=== PATIENT | male | born 1930 | race Hispanic/Latino ===

== ENCOUNTER 2016-10-31 01:35 | Inpatient (IN) | payer MEDICARE ==
[2016-10-31 03:03] LABS: Basophils % (Auto) 0.7 % (0.0-1.8); Eosinophils % (Auto) 3.5 % (0.0-4.3); Hematocrit 41.6 % (35.5-45.6); Mean Corpuscular HGB Conc 34 % (32-34); Mean Corpuscular Hemoglobin 33 pg (28-32); Mean Corpuscular Volume 99 fl (84-94); Platelet Count 200 K/mm3 (140-440); Red Blood Count 4.19 M/mm3 (3.65-5.03); Red Cell Distribution Width 13.9 % (13.2-15.2); White Blood Count 7.1 K/mm3 (4.5-11.0)
[2016-10-31 03:11] LABS: BUN/Creatinine Ratio 16.36; Blood Urea Nitrogen 18 mg/dL (9-20); Calcium 8.9 mg/dL (8.4-10.2); Carbon Dioxide 28 mmol/L (22-30); Chloride 100.1 mmol/L (98-107); Glucose 124 mg/dL (75-100); Potassium 4.6 mmol/L (3.6-5.0); Sodium 140 mmol/L (137-145)
[2016-10-31 03:14] LABS: Bacteria,Urine 4+ /HPF (Negative); Bilirubin,Urine NEG (Negative); Blood,Urine LG (Negative); Ketones,Urine NEG (Negative); Leukocyte Esterase,Urine NEG (Negative); Mucus,Urine FEW /HPF; Nitrite,Urine NEG (Negative); Urobilinogen,Urine < 2.0 mg/dL (<2.0)
[2016-10-31 03:22] LABS: Anion Gap 17 mmol/L
[2016-10-31] MEDS ORDERED: NACL 0.9% 1000 ML 2,000 ML IV ONE (08:42)
[2016-10-31] MEDS ORDERED: CARDIZEM IV ONE ×2 (08:59→09:42)
--- NOTE | 2016-10-31 09:01 | Emergency Department Report ---
HPI - General Chief Complaint: Dyspnea/Respdistress Time Seen by Provider: 10/31/16 07:25 - HPI HPI: The patient is an 86-year-old male with a significant history of bladder mass, and cystoscopy yesterday evening, who presents for evaluation of hematuria and shortness of breath. The patient states that his hematuria is elicited with urination, and has been mild in severity, and constant since his cystoscopy greater than 12 hours prior to my evaluation. He also admits to moderate in severity shortness of breath, exacerbated with ablation or physical activity, and improved at risk, for the past 24 hours. The patient denies fever, cough, syncope, hemoptysis, hematemesis, blood in the stool, easy bruising or bleeding , unilateral leg swelling, recent immobilization, history of DVT or PE. ED Past Medical Hx - Past Medical History Previous Medical History?: Yes Hx Kidney Stones: Yes Additional medical history: Aortic Aneurism 02/10 - Surgical History Additional Surgical History: Hernia repair - Social History Smoking Status: Former Smoker Substance Use Type: None - Medications Home Medications: Home Medications Medication Instructions Recorded Confirmed Last Taken Type Aspirin 81 mg PO QDAY 10/31/16 10/31/16 Unknown History Cefuroxime 250 mg PO 10/31/16 Unknown History Eye Vitamin-Minerals Tablet 1 tab PO BID 10/31/16 10/31/16 Unknown History Flomax 0.8 mg PO QDAY 10/31/16 10/31/16 Unknown History Lipitor 40 mg PO QDAY 10/31/16 10/31/16 Unknown History Tylenol Pm Ex-Strength Caplet 500 mg PO PRN PRN 10/31/16 10/31/16 Unknown History Zantac 300 MG TAB 300 mg PO QDAY 10/31/16 10/31/16 Unknown History traMADol 50 mg PO PRN PRN 10/31/16 10/31/16 Unknown History ED Review of Systems ROS: Stated complaint: BLOOD IN URIN Other details as noted in HPI Constitutional: denies: fever ENT: denies: throat or neck pain Respiratory: reports shortness of breath Cardiovascular: denies: chest pain Endocrine: denies unexplained weight loss or gain Gastrointestinal: denies: abdominal pain, nausea Genitourinary: Reports hematuria denies: dysuria Musculoskeletal: denies: leg swelling Skin: denies: rash Neurological: denies: headache Hematological/Lymphatic: denies: easy bleeding or easy bruising Psych: denies sadness or hopelessness Physical Exam - Physical Exam Vital Signs: Vital Signs 10/31/16 10/31/16 02:17 08:25 Temperature 97.7 F Pulse Rate 130 H Respiratory 20 18 Rate Blood Pressure 124/90 O2 Sat by Pulse 99 Oximetry Physical Exam: General: well-nourished, well-developed, no acute distress Head: Normocephalic, atraumatic Eyes: normal sclera ENT: Mucous membranes are pale and dry Neck: trachea midline, neck supple, No neck stiffness, no cervical adenopathy Respiratory: Breath sounds equal bilaterally, no wheezing, rales, or rhonchi Cardio: tachycardic, S1 and S2 present, no murmurs, rubs, gallops, capillary refill is delayed Abdomen: Normoactive bowel sounds, soft abdomen, no rigidity, no guarding or rebound tenderness Chest WALL/Back: No tenderness to palpation of the chest wall, no CVA tenderness with percussion Musc: No pitting edema Skin: No rash Neuro: no facial drooping, normal speech Psych: Normal affect ED Course Vital Signs 10/31/16 10/31/16 02:17 08:25 Temperature 97.7 F Pulse Rate 130 H Respiratory 20 18 Rate Blood Pressure 124/90 O2 Sat by Pulse 99 Oximetry ED Medical Decision Making - Lab Data Result diagrams: 10/31/16 02:31 10/31/16 02:31 - Medical Decision Making The patient was seen and examined by myself. The patient is placed on a cardiac surgeon and continuous pulse ox. On initial evaluation, the patient was found to be in no distress, with significantly elevated heart rate ranging from 130s to 140s. EKG exhibits irregularly irregular narrow complex tachycardic rhythm with no P waves, & significantly elevated heart rate, consistent with A. fib with RVR. Evaluation orders were placed. The patient is given IV Cardizem for treatment of arrhythmia and 1 L normal saline fluid bolus for treatment of dehydration. Multiple bedside reassessments are performed. Lab results reveal elevated BNP of 1000, otherwise labs are grossly not revealing. As the patient's found to have new onset atrial fibrillation, he will be admitted for continued treatment and evaluation by cardiology. The patient's urologist Dr. Valenzuela was contacted. He was informed of the patient's admission and agreed to consultation. He said that he will consider performing transurethral resection during patient's hospital stay. The patient's physician Dr. Manuel was contacted. He agreed to admit the patient. The ED admit order was placed. The patient was admitted in guarded condition. Critical care attestation.: If time is entered above; I have spent that time in minutes in the direct care of this critically ill patient, excluding procedure time. ED Disposition Clinical Impression: Atrial fibrillation with rapid ventricular response, Hematuria, Dehydration Disposition: OP ADMITTED IP TO THIS HOSP Is pt being admited?: Yes Does the pt Need Aspirin: Yes Condition: Serious Time of Disposition: 08:55
--- NOTE | 2016-10-31 09:02 | Admit Criteria Form ---
Admission Criteria Documentation: ATRIAL FIBRILLATION Clinical Indications for Admission to Inpatient Care (Place 'X' for any and all applicable criteria): Admission indicated for ANY ONE of the following(1)(2)(3)(4)(5) : [ ]I. Myocardial ischemia [ ]II. Dyspnea or hypoxemia [ ]III. Hemodynamic instability [ ]IV. Heart failure (e.g., pulmonary edema) (7) [X ]V. New-onset (less than 48 hours) atrial fibrillation with high risk for causing complications secondary to comorbidities (eg, symptomatic heart failure ) [ ]. Altered mental status [ ]VII. Syncope [ ]VIII. Patient has implantable cardioverter defibrillator that has fired more than once within past 24hr or needs immediate adjustment of settings that cannot be done other than in inpatient setting. (8) [ ]IX. Suspected accessory pathway (e.g., Ebkhx-Irjeiiviu-Bxnvn syndrome) on ECG [ ]X. Recent systemic thromboembolism (eg, stroke) [ ]XI. Medication toxicity (e.g., digitalis) causing arrhythmia(9) [ ]XII. Underlying medical condition that necessitates inpatient care (e.g., thyrotoxicosis, pneumonia) (10) [ ]XIII. Continuous ECG monitoring is required for condition causing arrhythmia (e.g., severe hyperkalemia, hypokalemia, acid-base disturbance).(11)(12)(13) [ ]XIV. Initiation of antiarrhythmic drug therapy is needed in patient at high risk of adverse effects as indicated by ANY ONE of the following: [ ]a) Significant structural heart disease (e.g., reduced ejection fraction, congenital heart disease, valvular heart disease) [ ]b) Prolonged QT interval [ ]c) Underlying sinus node or atrioventricular conduction disturbances [ ]d) Need for treatment with antiarrhythmic drugs that have significant proarrhythmic potential (e.g., dofetilide, sotalol, procainamide) [ ]e) Patient whose sinus rhythm has never been observed on ECG [ ]XV. Intolerable symptoms despite optimal outpatient treatment [ ]XVI. Elective or urgent cardioversion that cannot be performed on outpatient basis or during observation care. [A] (Use also Atrial Fibrillation: Observation Care ) as appropriate.(14) [ ]XVII.Contraindications and/or Inappropriate clinical situations for Observational Care in patients with Atrial Fibrillation, when ANY ONE of the following is required: [ ]a) Patient with High risk of cardiac embolism (e.g, patients with previous cardiac embolism, LVEF < 40%, age >75 and patients with prosthetic valve) 18 [ ]b) Patient with Moderate risk including DM patient, CAD and patient aged 65-75 18 [ ]c) Patient with any change in cardiac biomarker especially troponin should be managed as high risk in an inpatient setting 19 [ ]d) Physician judgement irrespective of ECG and other diagnostic findings 20 [ X]XVIII.General contraindications and/or Inappropriate clinical situations for Observational Care in patients with Atrial Fibrillation, when ANY ONE of the following is required: [ X]a) Prediction of prolongation of LOS based on ANY ONE of the following may be considered as a contraindication for observational care 2, 3, 4, 5, 6, 7, 8, 9, 10, 11 [X ]i) Age > 65 yrs. [ ]ii) Patient arriving by ambulance [ ]iii) Patient with high acuity [ ]iv) Patient requiring vital sign monitoring [ ]v) Patient on IV medication [ ]b) Systolic blood pressures 180mmHg 3,12 [ ]c) Patient with altered mental status including delirium and other alteration of consciousness3 [ ]d) Patient whose discharge disposition will be to a [facility] home or rehabilitation home should not be managed in Emergency Department Observation Unit. CMS rule requires 3 days hospital stay before such placement.3,13 [ ]e) Patient with failure to thrive due to broad array of etiologies 3,16,17 [ ]f) Inability to ambulate 3,14 Extended stay beyond goal length of stay may be needed for (1)(25)(26): [ ]a) Unstable comorbidities [ ]b) Persistently uncontrolled atrial fibrillation or other arrhythmias [ ]c) Acute thromboembolic event (e.g., stroke, limb ischemia) [ ]d) Need for inpatient attainment of full anticoagulation The original ethology content created by [employer] has been revised. The portions of the content which have been revised are identified through the use of italic text or in bold, and [facility] has neither reviewed nor approved the modified material. All other unmodified content is copyright [facility]. Please see references footnoted in the original [facility] edition 2016 Admission Criteria Met: Yes
[2016-10-31] MEDS ORDERED: TYLENOL PO PRN (09:30)
[2016-10-31] MEDS ORDERED: ZOFRAN IV PRN (09:30)
[2016-10-31] MEDS ORDERED: MILK OF MAGNESIA PO PRN (09:30)
[2016-10-31 09:33] LABS: INR 0.94 (0.87-1.13); Partial Thromboplastin Time 25.8 Sec. (24.2-36.6)
[2016-10-31] MEDS ORDERED: LOPRESSOR PO ONE (09:34)
[2016-10-31] MEDS ORDERED: CARDIZEM PO ONE (09:35)
[2016-10-31] MEDS ORDERED: LOVENOX SUB-Q SCH ×2 (10:00)
[2016-10-31] MEDS ORDERED: DULCOLAX PR PRN (10:00)
--- NOTE | 2016-10-31 12:06 | Consultation ---
History of Present Illness Consult date: 10/31/16 Requesting physician: GARY GOMEZ Consult reason: atrial fibrillation History of present illness: The patient underwent cystoscopy as part of evaluation of a bladder mass yesterday. Last evening, he started experiencing hematuria which became severe according to him. As such, he presented to the emergency department. Upon presentation, he was noted to be in rapid atrial fibrillation. He is asymptomatic for this. His electrolytes and thyroid profile are normal. In January 2016, he had a negative PET myocardial perfusions scan. Echocardiogram revealed an ejection fraction of 55% at the same time. In addition, there was documentation of a 3.3 cm fusiform abdominal aortic aneurysm. Past History Past Medical History: hyperlipidemia, other (abdominal aortic aneurysm) Past Surgical History: No surgical history Social history: . denies: smoking, alcohol abuse Family history: denies: CAD Medications and Allergies Allergies Allergy/AdvReac Type Severity Reaction Status Date / Time No Known Allergies Allergy Unverified 10/31/16 02:16 Home Medications Medication Instructions Recorded Confirmed Last Taken Type Aspirin 81 mg PO QDAY 10/31/16 10/31/16 Unknown History Cefuroxime 250 mg PO BID 10/31/16 10/31/16 Unknown History Eye Vitamin-Minerals Tablet 1 tab PO BID 10/31/16 10/31/16 Unknown History Flomax 0.8 mg PO QDAY 10/31/16 10/31/16 Unknown History Lipitor 40 mg PO QDAY 10/31/16 10/31/16 Unknown History Tylenol Pm Ex-Strength Caplet 500 mg PO PRN PRN 10/31/16 10/31/16 Unknown History Zantac 300 MG TAB 300 mg PO QDAY 10/31/16 10/31/16 Unknown History traMADol 50 mg PO PRN PRN 10/31/16 10/31/16 Unknown History Active Meds: Active Medications Acetaminophen (Tylenol) 650 mg PO Q4H PRN PRN Reason: Pain MILD(1-3)/Fever >100.5/SMITH Bisacodyl (Dulcolax) 10 mg [place] QDAY PRN PRN Reason: Constipation unrelieved by MOM Enoxaparin Sodium (Lovenox) 70 mg SUB-Q Q12HR MATTHEW Last Admin: 10/31/16 11:37 Dose: Not Given Magnesium Hydroxide (Milk Of Magnesia) 30 ml PO Q4H PRN PRN Reason: Constipation Ondansetron HCl (Zofran) 4 mg IV Q8H PRN PRN Reason: Nausea And Vomiting Review of Systems Constitutional: no fever, no chills Ears, nose, mouth and throat: no ear pain, no ear discharge, no sore throat Cardiovascular: no chest pain, no palpitations, no lightheadedness, no shortness of breath Respiratory: no cough, no hemoptysis, no shortness of breath, no dyspnea on exertion Gastrointestinal: no abdominal pain, no nausea, no vomiting, no diarrhea, no constipation Genitourinary Male: hematuria, no dysuria Rectal: no pain, no bleeding Musculoskeletal: no neck stiffness, no muscle weakness, no myalgias Integumentary: no rash, no pruritis Neurological: no weakness, no parathesias, no numbness, no headaches Endocrine: no cold intolerance, no heat intolerance Hematologic/Lymphatic: no easy bruising, no easy bleeding, no lymphedema Allergic/Immunologic: no urticaria, no wheezing Physical Examination Vital Signs Last Vital Signs Temp 97.7 F 10/31/16 02:17 Pulse 126 H 10/31/16 11:46 Resp 17 10/31/16 08:56 BP 145/92 10/31/16 10:36 Pulse Ox 97 10/31/16 08:56 General appearance: no acute distress HEENT: Positive: EOMI, Normocephaly, Mucus Membranes Moist Neck: Positive: neck supple, trachea midline Cardiac: Positive: irregularly irregular, S1/S2 Lungs: Positive: clear to auscultation Neuro: Positive: Grossly Intact Abdomen: Positive: Soft, Active Bowel Sounds. Negative: Tender Skin: Positive: Clear. Negative: Rash Musculoskeletal: Normal Range of Motion Extremities: Present: normal. Absent: edema Results 10/31/16 02:31 10/31/16 02:31 - Imaging and Cardiology EKG: image reviewed EKG interpretations - Telemetry EKG Rhythm: Atrial Fibrillation - EKG Supraventricular dysrhythmia: atrial fibrillation (with RVR) Assessment and Plan I will initiate IV Cardizem drip and oral metoprolol for rate control and hopefully, he will convert to sinus rhythm. I will not initiate anticoagulation at this time in the setting of hematuria. - Patient Problems (1) Atrial fibrillation with rapid ventricular response Current Visit: Yes Status: Acute (2) Hematuria Current Visit: Yes Status: Acute (3) Bladder mass Current Visit: Yes Status: Acute
--- NOTE | 2016-10-31 12:41 | Consultation ---
History of Present Illness - Reason for Consult Consult date: 10/31/16 - History of Present Illness pt with bladder tumor. ER with hematuria int and end void but stream clear. Past History Past Medical History: hyperlipidemia, other (abdominal aortic aneurysm) Past Surgical History: No surgical history Social history: . denies: smoking, alcohol abuse Family history: denies: CAD Medications and Allergies Allergies Allergy/AdvReac Type Severity Reaction Status Date / Time No Known Allergies Allergy Unverified 10/31/16 02:16 Home Medications Medication Instructions Recorded Confirmed Last Taken Type Aspirin 81 mg PO QDAY 10/31/16 10/31/16 Unknown History Cefuroxime 250 mg PO BID 10/31/16 10/31/16 Unknown History Eye Vitamin-Minerals Tablet 1 tab PO BID 10/31/16 10/31/16 Unknown History Flomax 0.8 mg PO QDAY 10/31/16 10/31/16 Unknown History Lipitor 40 mg PO QDAY 10/31/16 10/31/16 Unknown History Tylenol Pm Ex-Strength Caplet 500 mg PO PRN PRN 10/31/16 10/31/16 Unknown History Zantac 300 MG TAB 300 mg PO QDAY 10/31/16 10/31/16 Unknown History traMADol 50 mg PO PRN PRN 10/31/16 10/31/16 Unknown History Active Meds: Active Medications Acetaminophen (Tylenol) 650 mg PO Q4H PRN PRN Reason: Pain MILD(1-3)/Fever >100.5/SMITH Bisacodyl (Dulcolax) 10 mg [place] QDAY PRN PRN Reason: Constipation unrelieved by MOM Diltiazem HCl (Cardizem/D5w 100mg/100ml) 100 mls @ 5 mls/hr IV TITR MATTHEW; 5 MG/ HR PRN Reason: Protocol Magnesium Hydroxide (Milk Of Magnesia) 30 ml PO Q4H PRN PRN Reason: Constipation Metoprolol Tartrate (Lopressor) 50 mg PO Q6HR MATTHEW Ondansetron HCl (Zofran) 4 mg IV Q8H PRN PRN Reason: Nausea And Vomiting Review of Systems All systems: negative Genitourinary Male: hematuria Exam - Constitutional Vitals: Temp Pulse Resp BP Pulse Ox 97.7 F 126 H 17 145/92 97 10/31/16 02:17 10/31/16 11:46 10/31/16 08:56 10/31/16 10:36 10/31/16 08:56 General appearance: Present: no acute distress - EENT Eyes: Present: EOM intact ENT: hearing intact, clear oral mucosa - Neck Neck: Present: normal ROM - Extremities Extremities: no ischemia, No edema, Full ROM - Abdominal General gastrointestinal: Present: soft, non-tender Male genitourinary: Present: normal - Rectal Rectal Exam: deferred - Psychiatric Psychiatric: appropriate mood/affect Results - Labs CBC & Chem 7: 10/31/16 02:31 10/31/16 02:31 Assessment and Plan BLADDER TUMOR HEMATURIA AFIB UTI - cx, abx - Cards attempting to convert - will need future TURBT - UA 7 rbc
[2016-10-31] MEDS ORDERED: CARDIZEM/D5W 100MG/100ML 100 ML IV SCH ×2 (13:00→15:00)
[2016-10-31] MEDS: D5/0.45NS 1,000 ML IV SCH (15:19)
[2016-10-31] MEDS: LOPRESSOR PO SCH (16:47)
[2016-11-01] MEDS: LOPRESSOR PO SCH ×3 (00:27→12:10)
[2016-11-01] MEDS: D5/0.45NS 1,000 ML IV SCH ×2 (00:28→06:37)
--- NOTE | 2016-11-01 07:42 | Progress Note ---
Assessment and Plan BLADDER TUMOR HEMATURIA AFIB UTI - cx, abx - Cards attempting to convert - will need future TURBT - UA 7 rbc in ER 11/01/16 - IVF started yest afternoon - some dk urine likely old blood - will eval card status - will consider TURBT inpt when stable vs outpt -ext disc w pt fam about prognosis - 20 min Subjective Date of service: 11/01/16 Principal diagnosis: no void compl or pain, improved color Objective - Constitutional Vitals: Vital Signs - 12hr 10/31/16 11/01/16 11/01/16 21:14 00:50 05:41 Temperature 98.7 F 98.2 F 97.6 F Pulse Rate Pulse Rate [ 85 69 68 Right Radial] Respiratory 20 18 20 Rate Blood Pressure Blood Pressure 109/54 104/52 125/75 [Right Arm] O2 Sat by Pulse 97 99 96 Oximetry 11/01/16 06:31 Temperature Pulse Rate 72 Pulse Rate [ Right Radial] Respiratory Rate Blood Pressure 125/75 Blood Pressure [Right Arm] O2 Sat by Pulse Oximetry General appearance: Present: no acute distress - Labs CBC & Chem 7: 11/01/16 06:48 11/01/16 06:48
[2016-11-01 07:46] LABS: Basophils % (Auto) 0.8 % (0.0-1.8); Eosinophils % (Auto) 4.6 % (0.0-4.3); Hematocrit 37.4 % (35.5-45.6); Hemoglobin 12.6 gm/dl (11.8-15.2); Mean Corpuscular HGB Conc 34 % (32-34); Mean Corpuscular Hemoglobin 34 pg (28-32); Mean Corpuscular Volume 100 fl (84-94); Platelet Count 181 K/mm3 (140-440); Red Blood Count 3.73 M/mm3 (3.65-5.03); White Blood Count 4.9 K/mm3 (4.5-11.0)
--- NOTE | 2016-11-01 07:47 | History and Physical Report ---
History of Present Illness Date of examination: 11/01/16 Date of admission: 10/31/16 09:15 Chief complaint: Afib with RVR, Hematurai History of present illness: Pt is an 86 y/o male who has a history of urinary bladder tumor and had a cystostomy for further evaluation of same. Had hematuria thereafter for which he presented to the emergency department. Pt was found to have new onset Afib with RVR. Pt has no chest pain, Shortness of breath, PND or palpitaion. TSH was normal. However has very elevated BNP. Cardiology consult was obtained Past History Past Medical History: hyperlipidemia, other (abdominal aortic aneurysm) Past Surgical History: No surgical history Social history: . denies: smoking, alcohol abuse Family history: denies: CAD Medications and Allergies Allergies Allergy/AdvReac Type Severity Reaction Status Date / Time No Known Allergies Allergy Unverified 10/31/16 02:16 Home Medications Medication Instructions Recorded Confirmed Last Taken Type Aspirin 81 mg PO QDAY 10/31/16 10/31/16 Unknown History Cefuroxime 250 mg PO BID 10/31/16 10/31/16 Unknown History Eye Vitamin-Minerals Tablet 1 tab PO BID 10/31/16 10/31/16 Unknown History Flomax 0.8 mg PO QDAY 10/31/16 10/31/16 Unknown History Lipitor 40 mg PO QDAY 10/31/16 10/31/16 Unknown History Tylenol Pm Ex-Strength Caplet 500 mg PO PRN PRN 10/31/16 10/31/16 Unknown History Zantac 300 MG TAB 300 mg PO QDAY 10/31/16 10/31/16 Unknown History traMADol 50 mg PO PRN PRN 10/31/16 10/31/16 Unknown History Active Meds: Active Medications Acetaminophen (Tylenol) 650 mg PO Q4H PRN PRN Reason: Pain MILD(1-3)/Fever >100.5/SMITH Bisacodyl (Dulcolax) 10 mg [place] QDAY PRN PRN Reason: Constipation unrelieved by MOM Diltiazem HCl (Cardizem/D5w 100mg/100ml) 100 mls @ 5 mls/hr IV TITR MATTHEW PRN Reason: 5 MG/HR Dextrose/Sodium Chloride (D5/0.45ns) 1,000 mls @ 125 mls/hr IV DIRECT MATTHEW Magnesium Hydroxide (Milk Of Magnesia) 30 ml PO Q4H PRN PRN Reason: Constipation Metoprolol Tartrate (Lopressor) 50 mg PO Q6HR [facility] Last Admin: 11/01/16 06:31 Dose: 50 mg Ondansetron HCl (Zofran) 4 mg IV Q8H PRN PRN Reason: Nausea And Vomiting Review of Systems Constitutional: no weight loss, no weight gain, no anorexia Ears, nose, mouth and throat: no ear pain, no ear discharge, no tinnitis Cardiovascular: no chest pain, no orthopnea, no palpitations Respiratory: no cough, no cough with sputum Gastrointestinal: no abdominal pain, no nausea, no vomiting Genitourinary Male: hematuria, no dysuria, no flank pain, no discharge Musculoskeletal: no neck stiffness, no neck pain, no shooting arm pain Integumentary: no rash, no pruritis Neurological: no head injury, no transient paralysis, no paralysis Psychiatric: no anxiety, no memory loss, no paranoia Endocrine: no cold intolerance, no heat intolerance, no polyphagia, no excessive thirst Hematologic/Lymphatic: no easy bruising, no easy bleeding Allergic/Immunologic: no urticaria, no allergic rhinitis Exam - Constitutional Vitals: Temp Pulse Resp BP Pulse Ox 97.6 F 72 20 125/75 96 11/01/16 05:41 11/01/16 06:31 11/01/16 05:41 11/01/16 06:31 11/01/16 05:41 General appearance: Present: no acute distress, mild distress - EENT Eyes: Present: PERRL ENT: hearing intact - Neck Neck: Present: supple - Respiratory Respiratory: bilateral: CTA - Cardiovascular Rhythm: regular Heart Sounds: Present: S1 & S2 - Extremities Extremities: no ischemia, pulses intact, No edema - Abdominal General gastrointestinal: Present: soft, non-tender, non-distended Male genitourinary: Present: normal - Integumentary Integumentary: Present: clear, warm - Musculoskeletal Musculoskeletal: strength equal bilaterally - Psychiatric Psychiatric: appropriate mood/affect - Neurologic Neurologic: CNII-XII intact Results - Labs CBC & Chem 7: 10/31/16 02:31 10/31/16 02:31 Assessment and Plan - Patient Problems (1) Atrial fibrillation with rapid ventricular response Diagnosis Date: 10/31/16 Current Visit: Yes Status: Acute Plan to address problem: Rate controlled. Continue with Diltiazem drip and Metoprolol Cardiology following. (2) Bladder mass Diagnosis Date: 10/31/16 Current Visit: Yes Status: Acute Plan to address problem: for biospy and further mcx per Urology. garrett Pineda (3) Dehydration Diagnosis Date: 10/31/16 Current Visit: Yes Status: Acute Plan to address problem: deccrease rate to 75/min b/c possible CHF (4) Hematuria Diagnosis Date: 10/31/16 Current Visit: Yes Status: Acute Plan to address problem: cleared (5) Heart failure Diagnosis Date: 11/01/16 Current Visit: Yes Status: Acute Plan to address problem: Obtain ECHO decrease iv hydration
[2016-11-01 07:57] LABS: Blood Urea Nitrogen 14 mg/dL (9-20); Calcium 8.5 mg/dL (8.4-10.2); Carbon Dioxide 27 mmol/L (22-30); Chloride 103.4 mmol/L (98-107); Glucose 105 mg/dL (75-100); Potassium 4.5 mmol/L (3.6-5.0); Sodium 139 mmol/L (137-145)
[2016-11-01 07:59] LABS: Anion Gap 13 mmol/L
--- NOTE | 2016-11-01 12:15 | Progress Note ---
Addendum entered and electronically signed by AMPARO CERDA MD 11/01/16 12:31: I have seen and examined the patient and agree with the documentation below. If the patient requires resection of bladder tumor, this may proceed from a cardiac standpoint since his rate is adequately controlled. Original Note: Assessment and Plan D/c IV Cardizem and initiate PO amiodarone in an effort to convert to sinus rhythm. No anticoagulation at this time in the setting of hematuria. - Patient Problems (1) Atrial fibrillation with rapid ventricular response Diagnosis Date: 10/31/16 Current Visit: Yes Status: Acute (2) Hematuria Diagnosis Date: 10/31/16 Current Visit: Yes Status: Acute (3) Bladder mass Diagnosis Date: 10/31/16 Current Visit: Yes Status: Acute Subjective Date of service: 11/01/16 Principal diagnosis: atrial fibrillation Interval history: No new complaints. Atrial fibrillation with controlled ventricular rate on the monitor. Objective Last Vital Signs Temp 97.8 F 11/01/16 09:14 Pulse 84 11/01/16 10:00 Resp 20 11/01/16 10:00 BP 126/92 11/01/16 09:14 Pulse Ox 98 11/01/16 10:00 - Physical Examination General: No Apparent Distress HEENT: Positive: EOMI, Normocephaly, Mucus Membranes Moist Neck: Positive: neck supple, trachea midline Cardiac: Positive: irregularly irregular, S1/S2 Lungs: Positive: clear to auscultation Neuro: Positive: Grossly Intact Abdomen: Positive: Soft, Active Bowel Sounds. Negative: Tender Skin: Positive: Clear. Negative: Rash Musculoskeletal: Normal Range of Motion Extremities: Present: normal. Absent: edema - Labs and Meds CBC 11/01/16 Range/Units 06:48 WBC 4.9 (4.5-11.0) K/mm3 RBC 3.73 (3.65-5.03) M/mm3 Hgb 12.6 (11.8-15.2) gm/dl Hct 37.4 (35.5-45.6) % Plt Count 181 (140-440) K/mm3 Lymph # 0.7 L (1.2-5.4) K/mm3 [place] # 0.6 (0.0-0.8) K/mm3 Eos # 0.2 (0.0-0.4) K/mm3 Baso # 0.0 (0.0-0.1) K/mm3 Comprehensive Metabolic Panel 11/01/16 Range/Units 06:48 Sodium 139 (137-145) mmol/L Potassium 4.5 (3.6-5.0) mmol/L Chloride 103.4 (98-107) mmol/L Carbon Dioxide 27 (22-30) mmol/L BUN 14 (9-20) mg/dL Creatinine 0.7 L (0.8-1.5) mg/dL Glucose 105 H (75-100) mg/dL Calcium 8.5 (8.4-10.2) mg/dL - Imaging and Cardiology EKG: image reviewed - Telemetry EKG Rhythm: Atrial Fibrillation
[2016-11-01] MEDS ORDERED: CORDARONE PO SCH (14:00)
[2016-11-02] MEDS: LOPRESSOR PO SCH ×4 (01:19→21:09)
[2016-11-02] MEDS: D5/0.45NS 1,000 ML IV SCH (06:03)
[2016-11-02 07:24] LABS: Basophils % (Auto) 0.6 % (0.0-1.8); Eosinophils % (Auto) 2.8 % (0.0-4.3); Hematocrit 38.8 % (35.5-45.6); Hemoglobin 13.2 gm/dl (11.8-15.2); Mean Corpuscular HGB Conc 34 % (32-34); Mean Corpuscular Hemoglobin 34 pg (28-32); Mean Corpuscular Volume 99 fl (84-94); Platelet Count 189 K/mm3 (140-440); Red Blood Count 3.92 M/mm3 (3.65-5.03); Red Cell Distribution Width 13.8 % (13.2-15.2); White Blood Count 8.3 K/mm3 (4.5-11.0)
[2016-11-02 07:55] LABS: Alanine Aminotransferase 17 units/L (7-56); Albumin 3.6 g/dL (3.9-5); Albumin/Globulin Ratio 1.4 %; Anion Gap 20 mmol/L; Bilirubin,Total 0.5 mg/dL (0.1-1.2); Blood Urea Nitrogen 15 mg/dL (9-20); Calcium 8.6 mg/dL (8.4-10.2); Carbon Dioxide 21 mmol/L (22-30); Chloride 104.3 mmol/L (98-107); Glucose 91 mg/dL (75-100); Potassium 4.2 mmol/L (3.6-5.0); Sodium 141 mmol/L (137-145); Total Protein 6.1 g/dL (6.3-8.2)
[2016-11-02 08:39] LABS: Alkaline Phosphatase 66 units/L (35-129)
--- NOTE | 2016-11-02 10:50 | Echocardiography Report ---
Transthoracic Echocardiogram Indication: CHF BP: 125/75 Conclusions *Global left ventricular systolic function is normal. *Mild concentric left ventricular hypertrophy is observed. *The estimated ejection fraction is 55-60%. *The right ventricular global systolic function is normal. *There is trace of aortic regurgitation. *There is moderate mitral regurgitation. *Mild mitral leaflet calcification is visualized. *Mild aortic leaflet calcification is visualized. *There is moderate tricuspid regurgitation. *The right ventricular systolic pressure is calculated at 40 mmHg. *There is evidence of mild pulmonary hypertension. *There is trace pulmonic regurgitation. Findings Left Ventricle: The left ventricular chamber size is normal. Mild concentric left ventricular hypertrophy is observed. Global left ventricular wall motion and contractility are within normal limits. Global left ventricular systolic function is normal. The estimated ejection fraction is 55-60%. Normal left ventricular diastolic filling is observed. Left Atrium: The left atrium is mildly dilated. Right Ventricle: The right ventricular cavity size is normal. The right ventricular global systolic function is normal. Right Atrium: The right atrium is moderately dilated. The interatrial septum appears normal. Aortic Valve: The aortic valve leaflets are mildly thickened. Mild aortic leaflet calcification is visualized. There is trace of aortic regurgitation. There is no evidence of aortic stenosis. Mitral Valve: The mitral valve leaflets are mildly thickened. Mild mitral leaflet calcification is visualized. There is moderate mitral regurgitation. There is no evidence of mitral stenosis. Tricuspid Valve: The tricuspid valve leaflets are normal. There is moderate tricuspid regurgitation. The right ventricular systolic pressure is calculated at 40 mmHg. There is evidence of mild pulmonary hypertension. There is no tricuspid stenosis. Pulmonic Valve: The pulmonic valve appears normal. There is trace pulmonic regurgitation. There is no pulmonic stenosis. Pericardium: There is no pericardial effusion. Aorta: There is no dilatation of the ascending aorta. Venous: The inferior vena cava appears normal in size. There is less than 50% respiratory change in the inferior vena cava dimension. Measurements Chambers MM Name Value Normal Range Ao root diameter (MM) 2.5 cm (2 - 3.7) LA dimension (AP) MM 4.6 cm (1.9 - 4) LA:Ao ratio (MM) 1.84 ratio - AV cusp separation (MM) 1.3 cm (1.5 - 2.6) Chambers 2D Name Value Normal Range RVIDd (AP) 2D 3.23 cm (0.9 - 2.6) IVSd (2D) 1.2 cm (0.6 - 1.1) LVPWd (2D) 1.22 cm (0.6 - 1.1) IVS:LVPW ratio (2D) 0.98 ratio - LVIDd (2D) 4.33 cm (3.7 - 5.6) LVIDs (2D) 3.12 cm (2 - 3.8) LV FS (Teichholz) (2D) 27.9 % - LV FS (cube) (2D) 27.9 % - EF Teichholz (2D) 54.4 % - LA dimension (AP) 2D 4.6 cm (1.9 - 4) Volumes/Mass Name Value Normal Range LA ESV SP 4CH (MOD) 86 ml - LA ESV SP 2CH (MOD) 66 ml - LA ESV BP (MOD) 82 ml - LA ESV BP (MOD) index 42.3 ml/m2 - Diastolic/Systolic Function Name Value Normal Range MV E-wave Vmax 1 m/sec - MV deceleration time 204 msec - MV A-wave Vmax 0.25 m/sec - MV E:A ratio 4 ratio - LV septal e' Vmax 0.08 m/sec - LV lateral e' Vmax 0.1 m/sec - LV E:e' septal ratio 12.5 ratio - LV E:e' lateral ratio 9.7 ratio - Aortic Valve Name Value Normal Range AV VTI 33.7 cm - AV mean gradient 5 mmHg - LVOT diameter 2 cm - LVOT VTI 20 cm - LVOT mean gradient 2 mmHg - SV LVOT 63 ml - COLEMAN (continuity VTI) 1.86 cm2 - Mitral Valve Name Value Normal Range MV PHT 48 msec - MR Vmax 4.67 m/sec - MR VTI 169 cm - MR volume (PISA) 49 ml - MR flow (PISA) 136.7 ml/sec - MR ERO 0.29 cm2 - MR PISA radius 0.8 cm - MR alias Vmax 34 cm/sec - MVA (PHT) 4.58 cm2 - Tricuspid Valve Name Value Normal Range TR Vmax 2.81 m/sec - TR peak gradient 32 mmHg - RAP 8 mmHg - RVSP 40 mmHg - Pulmonic Valve/Qp:Qs Name Value Normal Range PV Vmax 0.78 m/sec - PV peak gradient 2 mmHg - MI end-diastolic Vmax 0.8 m/sec - PV acceleration time 116 msec -
--- NOTE | 2016-11-02 11:11 | Progress Note ---
Assessment and Plan Initiate amiodarone 200 mg twice a day with the hope of converting him back to sinus rhythm. Although he will benefit from anticoagulation, due to recent hematuria, I will hold off. Once his rhythm converts and he's stabilized, he may be discharged home from a cardiac standpoint to follow-up at my office in one week. - Patient Problems (1) Atrial fibrillation with rapid ventricular response Diagnosis Date: 10/31/16 Current Visit: Yes Status: Acute (2) Paroxysmal atrial fibrillation Current Visit: Yes Status: Acute (3) Hematuria Diagnosis Date: 10/31/16 Current Visit: Yes Status: Acute (4) Bladder mass Diagnosis Date: 10/31/16 Current Visit: Yes Status: Acute Subjective Date of service: 11/02/16 Principal diagnosis: Paroxysmal atrial fibrillation, bladder mass, hematuria Interval history: He claims that his urine was clear this morning. On the monitor, he went back into atrial fibrillation overnight. However, his ventricular rate is controlled. Objective Vital Signs Last Vital Signs Temp 97.9 F 11/02/16 08:00 Pulse 85 11/02/16 10:00 Resp 20 11/02/16 10:00 BP 134/82 11/02/16 08:00 Pulse Ox 99 11/02/16 10:00 - Physical Examination General: No Apparent Distress HEENT: Positive: EOMI, Normocephaly, Mucus Membranes Moist Neck: Positive: neck supple, trachea midline Cardiac: Positive: irregularly irregular, S1/S2 Lungs: Positive: clear to auscultation Neuro: Positive: Grossly Intact Abdomen: Positive: Soft, Active Bowel Sounds. Negative: Tender Skin: Positive: Clear. Negative: Rash Musculoskeletal: Normal Range of Motion Extremities: Present: normal. Absent: edema - Labs and Meds Cardiac Enzymes 11/02/16 Range/Units 05:53 AST 20 (5-40) units/L CBC 11/02/16 Range/Units 05:53 WBC 8.3 (4.5-11.0) K/mm3 RBC 3.92 (3.65-5.03) M/mm3 Hgb 13.2 (11.8-15.2) gm/dl Hct 38.8 (35.5-45.6) % Plt Count 189 (140-440) K/mm3 Lymph # 1.1 L (1.2-5.4) K/mm3 [place] # 0.9 H (0.0-0.8) K/mm3 Eos # 0.2 (0.0-0.4) K/mm3 Baso # 0.1 (0.0-0.1) K/mm3 Comprehensive Metabolic Panel 11/02/16 Range/Units 05:53 Sodium 141 (137-145) mmol/L Potassium 4.2 (3.6-5.0) mmol/L Chloride 104.3 (98-107) mmol/L Carbon Dioxide 21 L (22-30) mmol/L BUN 15 (9-20) mg/dL Creatinine 1.0 (0.8-1.5) mg/dL Glucose 91 (75-100) mg/dL Calcium 8.6 (8.4-10.2) mg/dL AST 20 (5-40) units/L ALT 17 (7-56) units/L Alkaline Phosphatase 66 (35-129) units/L Total Protein 6.1 L (6.3-8.2) g/dL Albumin 3.6 L (3.9-5) g/dL - Imaging and Cardiology EKG: image reviewed
[2016-11-02] MEDS: FLOMAX PO SCH (13:24)
[2016-11-02] MEDS: CORDARONE PO SCH ×2 (13:24→21:11)
--- NOTE | 2016-11-02 13:36 | Progress Note ---
Assessment and Plan BLADDER TUMOR HEMATURIA AFIB UTI - cx, abx - Cards attempting to convert - will need future TURBT - UA 7 rbc in ER 11/01/16 - IVF started yest afternoon - some dk urine likely old blood - will eval card status - will consider TURBT inpt when stable vs outpt -ext disc w pt fam about prognosis - 20 min 11/02/16 - patient states urine is clear when seen early this a.m. at approximately oh 0800 - Needs cardiac clearance for transurethral resection of bladder tumor which can try to do inpatient next week or outpatient if goes home tomorrow - Repeat discussion with family on options for treatment Subjective Date of service: 11/02/16 Principal diagnosis: Paroxysmal atrial fibrillation, bladder mass, hematuria Interval history: states urine is completely clear and no blood Objective - Constitutional Vitals: Vital Signs - 12hr 11/02/16 11/02/16 11/02/16 05:59 06: 08:00 Temperature 98.4 F 97.9 F Pulse Rate 84 Pulse Rate [ 84 85 Right Radial] Respiratory 18 20 Rate Blood Pressure 133/83 Blood Pressure 133/83 134/82 [Right Arm] O2 Sat by Pulse 94 97 Oximetry 11/02/16 10:00 Temperature Pulse Rate 85 Pulse Rate [ 85 Right Radial] Respiratory 20 Rate Blood Pressure Blood Pressure [Right Arm] O2 Sat by Pulse 99 Oximetry - Labs CBC & Chem 7: 11/02/16 05:53 11/02/16 05:53 Labs: Abnormal lab results 11/02/16 11/02/16 Range/Units 05:53 05:53 MCV 99 H (84-94) fl MCH 34 H (28-32) pg Lymph % (Auto) 13.1 L (13.4-35.0) % [place] % (Auto) 10.7 H (0.0-7.3) % Lymph # 1.1 L (1.2-5.4) K/mm3 [place] # 0.9 H (0.0-0.8) K/mm3 Seg Neutrophils % 72.8 H (40.0-70.0) % Carbon Dioxide 21 L (22-30) mmol/L Total Protein 6.1 L (6.3-8.2) g/dL Albumin 3.6 L (3.9-5) g/dL
[2016-11-02] MEDS: RESTORIL PO PRN (21:12)
[2016-11-03] MEDS: LOPRESSOR PO SCH ×3 (06:55→22:41)
[2016-11-03] MEDS: D5/0.45NS 1,000 ML IV SCH ×2 (06:58→15:06)
[2016-11-03] MEDS: CORDARONE PO SCH ×2 (11:10→22:40)
[2016-11-03] MEDS: FLOMAX PO SCH (11:10)
--- NOTE | 2016-11-03 12:20 | Progress Note ---
Assessment and Plan Ptient is doing better.Afib rate controlled. no further bradyarrythias.Cont current meds.Possible d/c tomorrow and follow closely as op.He has not been started on anticoagulation therapy as yet due to recent hematuria.Will start anicoagulants when ok with urology. - Patient Problems (1) Atrial fibrillation with rapid ventricular response Diagnosis Date: 10/31/16 Current Visit: Yes Status: Acute (2) Hematuria Diagnosis Date: 10/31/16 Current Visit: Yes Status: Acute Subjective Date of service: 11/03/16 Principal diagnosis: Paroxysmal atrial fibrillation, bladder mass, hematuria Interval history: Patint is feeling well. No cardiac symptoms. Objective Vital Signs Temp Pulse Pulse Resp BP BP Pulse Ox 11/03/16 10:00 73 74 18 99 11/03/16 08:17 97.6 F 73 20 128/64 97 11/03/16 06:55 84 126/66 11/03/16 05:23 98 F 84 18 126/66 97 11/03/16 00:19 97.6 F 75 18 121/65 96 11/02/16 22:00 80 18 11/02/16 21:09 77 91/52 11/02/16 20:31 98.2 F 77 20 91/52 94 11/02/16 19:02 86 11/02/16 16:00 97.9 F 78 20 127/74 97 - Physical Examination General: No Apparent Distress HEENT: Positive: EOMI, Normocephaly, Mucus Membranes Moist Neck: Positive: neck supple, trachea midline Cardiac: Positive: irregularly irregular Lungs: Positive: clear to auscultation Neuro: Positive: Grossly Intact Abdomen: Positive: Soft, Active Bowel Sounds. Negative: Tender Skin: Positive: Clear. Negative: Rash Musculoskeletal: Normal Range of Motion Extremities: Present: normal. Absent: edema - Imaging and Cardiology EKG: image reviewed
--- NOTE | 2016-11-03 15:56 | Progress Note ---
Assessment and Plan 1. Afib with RVR: controlled. Continue with Metoprolo and Amiodorone. Not anticaogulated b/c of hematuria 2. Tachy - haley syndrome: Resolving 3. Bladder tumor s/p cyctoscopy with hematuria. 4. Hematuria. Resolving. 5. Elevated BNP: ECHO showed normal systolic function with EF of 55-60%. No intramural thrombus reported D/c if no further arrhythmia. Commence anticoaguation per Urology recommendation. - Patient Problems (1) Atrial fibrillation with rapid ventricular response Diagnosis Date: 10/31/16 Current Visit: Yes Status: Acute (2) Bladder mass Diagnosis Date: 10/31/16 Current Visit: Yes Status: Acute (3) Dehydration Diagnosis Date: 10/31/16 Current Visit: Yes Status: Acute (4) Hematuria Diagnosis Date: 10/31/16 Current Visit: Yes Status: Acute (5) Heart failure Diagnosis Date: 11/01/16 Current Visit: Yes Status: Acute Subjective Date of service: 11/02/16 Principal diagnosis: Paroxysmal atrial fibrillation, bladder mass, hematuria Interval history: Pt was seen and examied on 11/02/16 and progress note was inadvertently omitted. This is therefore a progress note for 11/02/16 No new complaint. No more hematuria. No chest pain or palpitation. Objective - Constitutional Vitals: Vital Signs - 12hr 11/03/16 11/03/16 11/03/16 05:23 06:55 08:17 Temperature 98 F 97.6 F Pulse Rate 84 Pulse Rate [ 84 73 Right Radial] Respiratory 18 20 Rate Blood Pressure 126/66 Blood Pressure 126/66 128/64 [Right Arm] O2 Sat by Pulse 97 97 Oximetry 11/03/16 11/03/16 10:00 12:00 Temperature 98.0 F Pulse Rate 73 Pulse Rate [ 74 70 Right Radial] Respiratory 18 16 Rate Blood Pressure Blood Pressure 126/88 [Right Arm] O2 Sat by Pulse 99 95 Oximetry General appearance: Present: no acute distress - EENT Eyes: PERRL - Respiratory Respiratory: bilateral: CTA - Cardiovascular Rhythm: regular Heart Sounds: Present: S1 & S2 Extremities: no ischemia - Gastrointestinal General gastrointestinal: Present: soft, non-tender, non-distended - Genitourinary Male genitourinary: tender - Integumentary Integumentary: clear, warm - Musculoskeletal Musculoskeletal: strength equal bilaterally, right sided weakness - Neurologic Neurologic: CNII-XII intact - Labs CBC & Chem 7: 11/02/16 05:53 11/02/16 05:53
[2016-11-03] MEDS: RESTORIL PO PRN (22:40)
[2016-11-04] MEDS: LOPRESSOR PO SCH ×2 (06:40→17:06)
[2016-11-04] MEDS: FLOMAX PO SCH (09:02)
[2016-11-04] MEDS: CORDARONE PO SCH (09:03)
[2016-11-04] MEDS: D5/0.45NS 1,000 ML IV SCH (09:03)
--- NOTE | 2016-11-04 11:05 | Progress Note ---
Assessment and Plan Ptient is doing better.Afib rate controlled. no further bradyarrythias.Cont current meds.Possible d/c and follow closely as op.He has not been started on anticoagulation therapy as yet due to recent hematuria. Will start anicoagulants when ok with urology. - Patient Problems (1) Atrial fibrillation with rapid ventricular response Diagnosis Date: 10/31/16 Current Visit: Yes Status: Acute (2) Hematuria Diagnosis Date: 10/31/16 Current Visit: Yes Status: Acute Subjective Date of service: 11/04/16 Principal diagnosis: Paroxysmal atrial fibrillation, bladder mass, hematuria Interval history: Patint is feeling well. No cardiac symptoms.Anxious to go home Objective Vital Signs Temp Pulse Pulse Pulse Resp BP BP 11/04/16 07:52 97.7 F 62 18 136/69 11/04/16 06:40 101 H 118/78 11/04/16 04:00 97.9 F 119 H 18 11/04/16 00:00 97.8 F 121 H 18 11/03/16 22:41 90 121/62 11/03/16 22:00 86 11/03/16 20:00 98.2 F 105 H 18 11/03/16 17:00 98.4 F 72 18 11/03/16 12:00 98.0 F 70 16 BP Pulse Ox 11/04/16 07:52 99 11/04/16 06:40 11/04/16 04:00 118/78 97 11/04/16 00:00 98/59 98 11/03/16 22:41 11/03/16 22:00 11/03/16 20:00 121/62 98 11/03/16 17:00 118/65 98 11/03/16 12:00 126/88 95 - Physical Examination General: No Apparent Distress HEENT: Positive: EOMI, Normocephaly, Mucus Membranes Moist Neck: Positive: neck supple, trachea midline Cardiac: Positive: Irregularly Regular Lungs: Positive: clear to auscultation Neuro: Positive: Grossly Intact Abdomen: Positive: Soft, Active Bowel Sounds. Negative: Tender Skin: Positive: Clear. Negative: Rash Musculoskeletal: Normal Range of Motion Extremities: Present: normal. Absent: edema - Imaging and Cardiology EKG: image reviewed
[2016-11-04 15:22] VITALS: BP 171/80
--- NOTE | 2016-11-04 16:48 | Discharge Summary ---
Providers - Providers Date of Admission: 10/31/16 09:15 Date of discharge: 11/04/16 Attending physician: GARY GOMEZ 10/31/16 10:24 Consult to Physician [CONS] Urgent Consulting Provider: AMPARO CERDA Reason For Exam: new onset afib Place consult to:: [facility] Notified:: Phone 10/31/16 12:36 Consult to Physician [CONS] Routine Consulting Provider: MOHINDER BROCK Reason For Exam: gross hematuria Place consult to:: ER called me for consult to keith pt, but not on my list Notified:: Masha CROWLEY Was contact made?: Yes Primary care physician: GARY GOMEZ Hospitalization Reason for admission: A. fib with rapid ventricular response, gross hematuria, bladder tumor Condition: Serious Pertinent studies: Echocardiogram showed normal left ventricular function with ejection fraction of 55-60% EKG showed A. fib with rapid ventricular response Procedures: None Hospital course: Patient is a 86-year-old gentleman who has a history hypertension and hyperlipidemia, was found to have a bladder tumor. Referred to urologist. Cystoscopy was done. Patient started bleeding thereafter. Came to the emergency department because of the bleeding. Had no chest pain or palpitations. EKG was done. Findings were remarkable for atrial fibrillation with rapid ventricular response. Patient was admitted. Testicles was obtained. Commence on the Cardizem and metoprolol. Heart rate improved from the 140s to 100. Cardiology consult was obtained. Patient was commenced on amiodarone. Hydrated to decrease further to the 60s. Had an episode of tachybradycardia syndrome. No chest pain. Echocardiogram was done. Had ejection fraction of 55-60%. No intramural thrombus was identified. Patient was commenced on anticoagulation because of the gross hematuria. With IV hydration because materials resolved by the second day. Tachybradycardia resolved. 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 We 'll still hold anticoagulation onto urology clinic as the patient for anticoagulation. The risk of not anticoagulation what is explained to the patient as well as the benefits. He expressed understanding. He is therefore being discharged today to follow-up with the urologist and primary care physician as well as termite technician. Disposition: DISCHARGED TO HOME OR SELFCARE - Discharge Diagnoses (1) Atrial fibrillation with rapid ventricular response Status: Acute (2) Bladder mass Status: Acute (3) Dehydration Status: Acute (4) Hematuria Status: Acute (5) Heart failure Status: Acute Core Measure Documentation - Palliative Care Palliative Care/ Comfort Measures: Not Applicable - Core Measures Any of the following diagnoses?: none Exam - Constitutional Vitals: Temp Pulse Resp BP Pulse Ox 97.8 F 86 18 171/80 97 11/04/16 15:21 11/04/16 15:21 11/04/16 15:21 11/04/16 15:21 11/04/16 15:21 General appearance: Present: no acute distress - EENT Eyes: Present: PERRL - Neck Neck: Present: supple - Respiratory Respiratory: bilateral: CTA - Cardiovascular Rhythm: irregularly irregular - Extremities Extremities: no ischemia Extremity abnormal: edema - Abdominal General gastrointestinal: Present: soft, non-tender - Integumentary Integumentary: Present: clear, warm, dry - Musculoskeletal Musculoskeletal: strength equal bilaterally - Psychiatric Psychiatric: appropriate mood/affect - Neurologic Neurologic: CNII-XII intact Plan Activity: advance as tolerated Weight Bearing Status: Weight Bear as Tolerated Diet: low cholesterol Follow up with: GARY GOMEZ MD [Primary Care Provider] - 3-5 Days FINA ANDERSON MD [Staff Physician] - 7 Days MOHINDER BROCK MD [Staff Physician] - 3 Days Prescriptions: Lipitor 40 mg PO QDAY #90 Metoprolol [Lopressor TAB] 50 mg PO Q8H #90 tablet Tamsulosin [Flomax] 0.4 mg PO QDAY #30 capsule Temazepam [Restoril] 15 mg PO QHS PRN #30 capsule PRN Reason: Sleep
== END 2016-11-04 19:20 | disposition home or self-care (01) | DRG 309 ==
LOC: ED 01:35 → 4A 09:15
PROVIDERS: ADMIT Internal Medicine; ATTEND Family Medicine
DX: I48.0 Paroxysmal atrial fibrillation (principal); N39.0 Urinary tract infection, site not specified; D49.4 Neoplasm of unspecified behavior of bladder; E86.0 Dehydration; I50.9 Heart failure, unspecified; E78.5 Hyperlipidemia, unspecified; I49.5 Sick sinus syndrome; Z87.442 Personal history of urinary calculi; Z87.891 Personal history of nicotine dependence; Z98.890 Other specified postprocedural states; Z79.01 Long term (current) use of anticoagulants; R31.9 Hematuria, unspecified
CPT/HCPCS: 36415; 80048; 80053; 81001; 82550; 83880; 84439; 84443; 85025; 85610; 85730; 87086; 93005; 93010; 93306; 96361; 96374; 96375; 96376; J7030

== ENCOUNTER 2017-09-16 11:29 | Outpatient (CLI) | payer MEDICARE ==
--- NOTE | 2017-09-16 12:13 | XRay Report ---
RIGHT ANKLE, 3 views: History: right ankle pain. A nondisplaced fracture is identified in the distal fibula at the level of the tibiotalar joint. There appears to be subtle callus formation at the fracture site consistent with a subacute fracture. Please correlate with the patient's history. The distal tibia and talar dome are intact. There is diffuse soft tissue swelling. IMPRESSION: Subacute, healing distal fibular fracture as described.
== END 2017-09-16 11:30 | disposition home or self-care (01) ==
LOC: XRAY 11:29
PROVIDERS: ATTEND Orthopaedic Surgery
DX: M25.571 Pain in right ankle and joints of right foot (principal); S82.891D Other fracture of right lower leg, subsequent encounter for closed fracture with routine healing; M25.771 Osteophyte, right ankle; X58.XXXD Exposure to other specified factors, subsequent encounter